=== PATIENT | female | born 1955 | race Caucasian/White ===

== ENCOUNTER 2017-04-11 15:54 | Observation (INO) | payer OTHER ==
[~2017-04-11] VITALS: Ht 160 cm; Wt 81.0 kg
[2017-04-11 16:40] LABS: HEMATOCRIT 36.7 % (36.0-46.0); MCH 29.3 PG (29.0-34.0); MCV 88.9 FL (83-99); MEAN PLAT.VOLUME 11.3 uM^3 (9.5-12.4); PLATELET COUNT 184 K/uL (156-360); RBC DIS.WIDTH-CV 12.4 % (11.8-14.6); RBC DIS.WIDTH-SD 40.1 % (39-53); RED BLOOD COUNT 4.13 M/uL (3.80-5.20); WHITE BLOOD COUNT 4.5 K/uL (4.1-10.2)
[2017-04-11 16:48] LABS: CHLORIDE 112 mEq/L (99-109); SODIUM 144 mEq/L (136-147)
[2017-04-11 16:50] LABS: GLUCOSE 100 mg/dL (70-99)
[2017-04-11 16:52] LABS: ANION GAP 9 MEQ/L (2-14)
[2017-04-11 16:54] LABS: GFR ESTIMATE (CALCULATED) > 59 mL/min/
[2017-04-11 16:55] LABS: UREA NITROGEN (BUN) 26 mg/dL (9-23)
[2017-04-11 16:56] LABS: D-DIMER ELISA < 150.00 ng/mLDDU (<230)
[2017-04-11 17:01] LABS: TROP-I INTERPRETATION NEGATIVE; TROPONIN-I < 0.01 ng/mL (0.0-0.30)
[2017-04-11] MEDS ORDERED: LOSARTAN POTASS25 MG PO (18:21)
[2017-04-11] MEDS ORDERED: CARVEDILOL6.25 MG PO (18:21)
[2017-04-11] MEDS ORDERED: MYRBETRIQ50 MG PO (18:22)
[2017-04-11] MEDS ORDERED: ATORVASTATIN CA40 MG PO (18:23)
[2017-04-11] MEDS ORDERED: LO-DOSE ASPIRIN81 M2 PO (18:24)
[2017-04-11] MEDS ORDERED: RESTASIS MULTI5.5 ML BOTH EYES (18:25)
[2017-04-11] MEDS ORDERED: MOTRIN IB200 MG PO (18:26)
[2017-04-11 19:35] VITALS: BP 141/88
[2017-04-11 23:21] LABS: TROP-I INTERPRETATION NEGATIVE; TROPONIN-I < 0.01 ng/mL (0.0-0.30)
[2017-04-11 23:33] VITALS: BP 119/67
[2017-04-12 03:30] VITALS: BP 118/78
[2017-04-12 05:39] LABS: HEMATOCRIT 35.4 % (36.0-46.0); MCH 28.4 PG (29.0-34.0); MCHC 31.6 G/DL (30.0-36.0); MCV 89.6 FL (83-99); MEAN PLAT.VOLUME 11.4 uM^3 (9.5-12.4); PLATELET COUNT 185 K/uL (156-360); RBC DIS.WIDTH-CV 12.5 % (11.8-14.6); RBC DIS.WIDTH-SD 41.7 % (39-53); RED BLOOD COUNT 3.95 M/uL (3.80-5.20); WHITE BLOOD COUNT 3.4 K/uL (4.1-10.2)
[2017-04-12 06:00] LABS: TROP-I INTERPRETATION NEGATIVE; TROPONIN-I 0.01 ng/mL (0.0-0.30)
[2017-04-12 06:24] LABS: ANION GAP 7 MEQ/L (2-14); CHLORIDE 112 MEQ/L (99-109); GFR ESTIMATE (CALCULATED) > 59 mL/min/; GLUCOSE 79 mg/dL (70-99); POTASSIUM 3.8 MEQ/L (3.7-5.4); SAMPLE HEMOLYSIS CHECK 0; SAMPLE ICTERIC CHECK 0; SAMPLE LIPEMIA CHECK 0; SODIUM 143 MEQ/L (136-147); UREA NITROGEN (BUN) 20 mg/dL (9-23)
[2017-04-12 08:21] VITALS: BP 143/90
== END 2017-04-12 11:45 | disposition home or self-care (01) ==
LOC: EME 15:54 → EDOF 18:12 → 5WEST 18:12 → ENRESERV 18:14 → 5WEST 19:30
PROVIDERS: Hospitalist; Physician Assistant
DX: R07.9 Chest pain, unspecified (principal); I25.10 Atherosclerotic heart disease of native coronary artery without angina pectoris; Z95.1 Presence of aortocoronary bypass graft; R06.02 Shortness of breath; I27.20 Pulmonary hypertension, unspecified; Z79.82 Long term (current) use of aspirin; E78.5 Hyperlipidemia, unspecified; I10 Essential (primary) hypertension; Z87.891 Personal history of nicotine dependence; Z88.8 Allergy status to other drugs, medicaments and biological substances
CPT/HCPCS: 71020; 80048; 84484; 85027; 85379; 93005; 93306; 99281; 99284; G0378; J1650; J7030